=== PATIENT | female | born 1945 | race Caucasian/White ===

== ENCOUNTER 2024-07-08 17:40 | Inpatient (IN) | payer MEDICARE, BC ==
[2024-07-08] MEDS ORDERED: ACETAMINOPHEN TAB 325 MG TAB PO PRN (18:02)
[2024-07-08] MEDS ORDERED: NALOXONE 0.4 MG/ML 1 ML VIAL IV PRN (18:02)
--- NOTE | 2024-07-08 18:10 | ED ---
General Adult HPI - General Stated complaint: DVT/AMS Time Seen by Provider: 07/08/24 17:54 Source: patient, RN notes reviewed, old records reviewed - History of Present Illness Initial comments: 79-year-old female presents as transfer from outside hospital with DVT and PE identified on ultrasound and CT angiography of the chest. Patient was started on heparin and transferred for further evaluation. Patient had complained of chest pain and dyspnea. She was noted to be in A-fib and had diagnosis of DVT and PE. Patient has no complaints at the time my evaluation. Review of Systems ROS Statement: Those systems with pertinent positive or pertinent negative responses have been documented in the HPI. ROS Other: All systems not noted in ROS Statement are negative. General Exam General appearance: alert, in no apparent distress Head exam: Present: atraumatic, normocephalic Eye exam: Present: normal appearance, PERRL ENT exam: Present: normal exam Neck exam: Present: normal inspection. Absent: tenderness, meningismus Respiratory exam: Present: normal lung sounds bilaterally. Absent: respiratory distress, wheezes Cardiovascular Exam: Present: regular rate, irregular rhythm GI/Abdominal exam: Present: soft. Absent: distended, tenderness, guarding Extremities exam: Present: normal inspection, normal capillary refill Neurological exam: Present: alert, oriented X3, CN II-XII intact. Absent: motor sensory deficit Psychiatric exam: Present: normal affect, normal mood Skin exam: Present: warm, dry, intact. Absent: cyanosis, diaphoretic Medical Decision Making - Medical Decision Making Was pt. sent in by a medical professional or institution (, PA, PARTS REMOVER, urgent care, hospital, or long term...) When possible be specific @Patient was transferred from [facility] with bilateral PE Did you speak to anyone other than the patient for history (EMS, parent, family, police, friend...)? What history was obtained from this source @ -No Did you review nursing and triage notes (agree or disagree)? Why? @ -I reviewed and agree with nursing and triage notes Were old charts reviewed (outside hosp., previous admission, EMS record, old EKG, old radiological studies, urgent care reports/EKG's, long term records)? Report findings @ -No old charts were reviewed Differential Diagnosis (chest pain, altered mental status, abdominal pain women, abdominal pain men, vaginal bleeding, weakness, fever, dyspnea, syncope, headache, dizziness, GI bleed, back pain, seizure, CVA, palpatations, mental health, musculoskeletal)? @Differential Dyspnea: Coronary syndrome, arrhythmia, tamponade, asthma, COPD, pulmonary embolism, pneumonia, pneumothorax, pulmonary effusion, anaphylaxis, diabetic ketoacidosis, flailed chest, pulmonary contusion, diaphragmatic rupture, anemia, neuromuscular, this is not meant to be an all-inclusive list. EKG interpreted by me (3pts min.). @EKG: Atrial fibrillation rate of 80, QRS duration 74, QTc [address] segment elevation X-rays interpreted by me (1pt min.). @ -None done CT interpreted by me (1pt min.). @ -CT angiography will be loaded for review U/S interpreted by me (1pt. min.). @ -None done What testing was considered but not performed or refused? (CT, X-rays, U/S, labs)? Why? @ -None What meds were considered but not given or refused? Why? @ -None Did you discuss the management of the patient with other professionals (professionals i.e. , PA, PARTS REMOVER, lab, RT, psych nurse, social staff worker, quality systems specialist, teacher, animal control officer, caser up)? Give summary @ -[Case discussed with [facility] Was smoking cessation discussed for >3mins.? @ -No Was critical care preformed (if so, how long)? @ -Yes, 35 minutes bilateral PE Were there social determinants of health that impacted care today? How? (Homelessness, low income, unemployed, alcoholism, drug addiction, transportation, low edu. Level, literacy, decrease access to med. care, halfway, rehab)? @ -No Was there de-escalation of care discussed even if they declined (Discuss DNR or withdrawal of care, Hospice)? DNR status @ -No What co-morbidities impacted this encounter? (DM, HTN, Smoking, COPD, CAD, Cancer, CVA, ARF, Chemo, Hep., AIDS, mental health diagnosis, sleep apnea, morbid obesity)? @ -Atrial fibrillation Was patient admitted / discharged? Hospital course, mention meds given and route, prescriptions, significant lab abnormalities, going to OR and other per tinent info. @ -79-year-old female transfer from outside hospital with bilateral PE, concern for right heart strain. The troponin was negative. The patient is asymptomatic upon arrival. She will be continued on heparin repeat CBC, CMP and troponin are obtained these results are pending. Echo has been ordered. She is admitted to internal medicine with vascular surgery on consult for evaluatio n. Undiagnosed new problem with uncertain prognosis? @ -No Drug Therapy requiring intensive monitoring for toxicity (Heparin, Nitro, Insulin, Cardizem)? @ -No Were any procedures done? @ -No Diagnosis/symptom? @Bilateral PE Acute, or Chronic, or Acute on Chronic? @ -Acute Uncomplicated (without systemic symptoms) or Complicated (systemic symptoms)? @ -Default Side effects of treatment? @ -No Exacerbation, Progression, or Severe Exacerbation? @ -No Poses a threat to life or bodily function? How? (Chest pain, [place], NH, pneumonia, PE, COPD, DKA, ARF, appy, cholecystitis, CVA, Diverticulitis, Homicidal, Suicidal, threat to staff... and all critical care pts) @Yes, PE Critical Care Time Critical Care Time: Yes Total Critical Care Time: 35 Disposition Clinical Impression: Bilateral pulmonary embolism Disposition: ADMITTED IP TO THIS HOSP Condition: Stable Is patient prescribed a controlled substance at d/c from ED?: No Referrals: None,Stated [Primary Care Provider] - 1-2 days Time of Disposition: 18:10
[2024-07-08 18:19] LABS: Basophils % (A) 0 %; Eosinophils # (A) 0.1 k/uL (0-0.7); Eosinophils % (A) 1 %; HCT 37.9 % (34.0-46.0); HGB 12.5 gm/dL (11.4-16.0); Lymphocytes # (A) 1.9 k/uL (1.0-4.8); Lymphocytes % (A) 15 %; MCH 29.3 pg (25.0-35.0); MCV 88.6 fL (80.0-100.0); Mean Platelet Volume 7.8; Monocytes # (A) 0.6 k/uL (0-1.0); Monocytes % (A) 5 %; Neutrophils # (A) 9.9 k/uL (1.3-7.7); Neutrophils % (A) 78 %; Platelet Count 149 k/uL (150-450); RBC 4.28 m/uL (3.80-5.40); WBC 12.6 k/uL (3.8-10.6)
[2024-07-08] MEDS: HEPARIN SOD,PORK IN 0.45% NACL 25,000 UNIT in 0.45% NACL 1 250ML.BAG IV SCH (18:26)
[2024-07-08 18:51] LABS: INR 1.6 (<1.2); Prothrombin Time 16.8 sec (10.0-12.5)
[2024-07-08 19:42] LABS: ALT 16 U/L (4-34); AST 28 U/L (14-36); African American GFR (CKD) >90 (>60 ml/min/1.73 sqM); Albumin 3.1 g/dL (3.5-5.0); Alkaline Phosphatase 89 U/L (38-126); Anion Gap 7 mmol/L; Blood Urea Nitrogen 23 mg/dL (7-17); Calcium 8.4 mg/dL (8.4-10.2); Carbon Dioxide 26 mmol/L (22-30); Chloride 96 mmol/L (98-107); Glucose 123 mg/dL (74-99); Non-African American GFR(CKD) 86 (>60 ml/min/1.73 sqM); Potassium 3.5 mmol/L (3.5-5.1); Sodium 129 mmol/L (137-145); Total Bilirubin 1.1 mg/dL (0.2-1.3)
--- NOTE | 2024-07-08 20:08 | P.GSCN ---
History of Present Illness Consult date: 07/08/24 Reason for Consult: Bilateral PE, DVT History of present illness: 79-year-old female who originally presented to the hospital in [place] due to which she says her rehab therapist stated that she did not look well and was having a difficult time breathing. She states during that time she was evaluated and ultimately had a bilateral pulmonary embolism as well as a left lower extremity DVT and was transferred to [facility] for further evaluation. She was complaining of chest pain and shortness of breath and upon arrival to the emergency department she was placed on heparin. Currently she states she is feeling much better and her breathing has improved significantly and is no longer on any oxygen. She denies any fevers, chills, chest pain at this time. Review of Systems All systems: negative (What is mentioned in the HPI or past medical history) Past Medical History Past Medical History: Atrial Fibrillation, Cancer, Deep Vein Thrombosis (DVT), Osteoarthritis (OA), Pulmonary Embolus (PE) Additional Past Medical History / Comment(s): Right breast cancer in approx 2013 History of Any Multi-Drug Resistant Organisms: None Reported Past Surgical History: Appendectomy, Hysterectomy, Tonsillectomy Additional Past Surgical History / Comment(s): Bunion removal to left foot, Past Psychological History: No Psychological Hx Reported Smoking Status: Never smoker Past Alcohol Use History: None Reported Past Drug Use History: None Reported Medications and Allergies Home Medications Medication Instructions Recorded Confirmed Type Ascorbic Acid [Vitamin C] 1,000 mg PO HS 07/08/24 07/08/24 History Brainstrong Memory Support 1 tab PO HS 07/08/24 07/08/24 History Cranberry 8400mg 8,400 mg PO DAILY 07/08/24 07/08/24 History Grape Seed Extract 315mg 315 mg PO DAILY 07/08/24 07/08/24 History Milk Thistle 500mg 1,000 mg PO DAILY 07/08/24 07/08/24 History Mv-Min/Folic/Vit K/Lut/Azcp295 1 tab PO DAILY 07/08/24 07/08/24 History [Alive Women's 50 Plus Tablet] [place] 3-6-9 1 cap PO DAILY 07/08/24 07/08/24 History Psyllium Husk [Fiber Capsule] 0.4 gm PO DAILY 07/08/24 07/08/24 History Red Yeast Rice 1,200 mg PO BID 07/08/24 07/08/24 History Turmeric Root Extract [Turmeric] 500 mg PO HS 07/08/24 07/08/24 History Vitamin B-12(Unknown Dose) 1 tab PO DAILY 07/08/24 07/08/24 History Vitamin D3 500mcg 500 mcg PO HS 07/08/24 07/08/24 History hydroCHLOROthiazide [Hydrodiuril] 50 mg PO DAILY 07/08/24 07/08/24 History Allergies Allergy/AdvReac Type Severity Reaction Status Date / Time COVID-19 (SARS-CoV-2) Allergy Rash/Hives Verified 07/08/24 19:04 vaccine, sharifa Penicillins Allergy Rash/Hives Verified 07/08/24 19:04 Tetanus Vaccines and Toxoid Allergy Swelling Verified 07/08/24 19:04 Surgical - Exam Vital Signs Temp Pulse Resp BP Pulse Ox 97.5 F L 83 18 135/75 99 07/08/24 17:53 07/08/24 17:53 07/08/24 17:53 07/08/24 17:53 07/08/24 17:53 Patient Seen Date: 07/08/24 Patient Seen Time: 19:15 - General well developed, well nourished, no distress - Eyes PERRL, normal ocular movement - ENT normal pinna, normal nares - Neck no masses, no bruits - Respiratory normal expansion, normal respiratory effort - Cardiovascular Rhythm: regularly irregular - Abdomen Abdomen: soft, non tender - Integumentary no rash - Neurologic normal coordination, normal sensation - Psychiatric oriented to time, oriented to person, oriented to place, speech is normal Palpable DP and PT pulse bilaterally Tenderness to palpation of the left calf Results CT PE protocol demonstrates bilateral segmental PEs - Labs 07/08/24 18:10 07/08/24 18:10 Abnormal Lab Results - Last 24 Hours (Table) 07/08/24 07/08/24 07/08/24 Range/Units 18:10 18:10 18:10 WBC 12.6 H (3.8-10.6) k/uL Plt Count 149 L (150-450) k/uL Neutrophils # 9.9 H (1.3-7.7) k/uL PT 16.8 H (10.0-12.5) sec INR 1.6 H (<1.2) APTT 105.0 H* (22.0-30.0) sec Sodium 129 L (137-145) mmol/L Chloride 96 L (98-107) mmol/L BUN 23 H (7-17) mg/dL Glucose 123 H (74-99) mg/dL Total Protein 6.0 L (6.3-8.2) g/dL Albumin 3.1 L (3.5-5.0) g/dL Diabetes panel 07/08/24 Range/Units 18:10 Sodium 129 L (137-145) mmol/L Potassium 3.5 (3.5-5.1) mmol/L Chloride 96 L (98-107) mmol/L Carbon Dioxide 26 (22-30) mmol/L BUN 23 H (7-17) mg/dL Creatinine 0.65 (0.52-1.04) mg/dL Glucose 123 H (74-99) mg/dL Calcium 8.4 (8.4-10.2) mg/dL AST 28 (14-36) U/L ALT 16 (4-34) U/L Alkaline Phosphatase 89 (38-126) U/L Total Protein 6.0 L (6.3-8.2) g/dL Albumin 3.1 L (3.5-5.0) g/dL Calcium panel 07/08/24 Range/Units 18:10 Calcium 8.4 (8.4-10.2) mg/dL Albumin 3.1 L (3.5-5.0) g/dL Pituitary panel 07/08/24 Range/Units 18:10 Sodium 129 L (137-145) mmol/L Potassium 3.5 (3.5-5.1) mmol/L Chloride 96 L (98-107) mmol/L Carbon Dioxide 26 (22-30) mmol/L BUN 23 H (7-17) mg/dL Creatinine 0.65 (0.52-1.04) mg/dL Glucose 123 H (74-99) mg/dL Calcium 8.4 (8.4-10.2) mg/dL Adrenal panel 07/08/24 Range/Units 18:10 Sodium 129 L (137-145) mmol/L Potassium 3.5 (3.5-5.1) mmol/L Chloride 96 L (98-107) mmol/L Carbon Dioxide 26 (22-30) mmol/L BUN 23 H (7-17) mg/dL Creatinine 0.65 (0.52-1.04) mg/dL Glucose 123 H (74-99) mg/dL Calcium 8.4 (8.4-10.2) mg/dL Total Bilirubin 1.1 (0.2-1.3) mg/dL AST 28 (14-36) U/L ALT 16 (4-34) U/L Alkaline Phosphatase 89 (38-126) U/L Total Protein 6.0 L (6.3-8.2) g/dL Albumin 3.1 L (3.5-5.0) g/dL Assessment and Plan Assessment: Acute bilateral pulmonary embolism Acute lower extremity DVT Possible right heart strain Plan: Agree with heparin drip and will require transition to oral anticoagulation for at least 6 months There does not appear to be right heart strain on CT evaluation but will obtain echo in the morning Due to the fact that she is doing well on heparin and no significant shortness of breath and on room air unlikely to have any surgical intervention Thank you for the consultation
[2024-07-09] MEDS ORDERED: NALOXONE 0.4 MG/ML 1 ML VIAL IV PRN (09:51)
[2024-07-09] MEDS ORDERED: MELATONIN 3 MG TABLET PO PRN (09:51)
[2024-07-09] MEDS ORDERED: HYDROcodone/APAP 5-325MG 1 EACH TAB PO PRN (09:51)
[2024-07-09] MEDS ORDERED: MAG HYDROX/AL HYDROX/SIMETH 30 ML CUP PO PRN (09:51)
[2024-07-09] MEDS ORDERED: ONDANSETRON 4 MG/2 ML VIAL IVP PRN (09:51)
--- NOTE | 2024-07-09 13:26 | P.CNPUL ---
History of Present Illness Consult date: 07/09/24 Requesting physician: Sergey Ledbetter Reason for consult: pulmonary embolism Chief complaint: Leg swelling and shortness of breath History of present illness: This is a 79-year-old female, history of degenerative joint disease, history of atrial fibrillation, history of breast cancer, patient had a recent bunion surgery on the left foot and that was in March of 2024, patient was advised to go to rehab and has been following up in rehab after her surgery. Yesterday while in rehab, patient was complaining of left lower extremity swelling, and she was also complaining of some shortness of breath. Patient was sent to [place] ER, and she was found to have acute pulmonary embolism/bilateral pulmonary emboli. I believe she was also found to have left lower extremity DVT. Patient was complaining of some vague chest discomfort and shortness of breath when she was in the ER. Patient was placed on heparin, CT angiogram of the chest showed no evidence of right ventricular strain, patient was seen by vascular surgery, planning echocardiogram, and depending on the echocardiogram findings the decision will be made whether to continue medical therapy or to proceed with EKOS thrombolysis in the meantime the patient seems to be doing well, resting, does not seem to be in any distress patient is on room air, O2 sat is 96%, hemodynamically stable, multiple family members at bedside Review of Systems REVIEW OF SYSTEMS: CONSTITUTIONAL: Negative. EYES: Negative. ENT: Negative. CARDIAC: Negative. PULMONARY: As noted in HPI GI: Negative. GENITOURINARY: Negative. MUSCULOSKELETAL: As noted in HPI SKIN: Negative. NEUROPSYCH: Negative. ENDOCRINE: Negative. HEMATOLOGIC: Negative. Past Medical History Past Medical History: Atrial Fibrillation, Cancer, Deep Vein Thrombosis (DVT), Osteoarthritis (OA), Pulmonary Embolus (PE) Additional Past Medical History / Comment(s): Right breast cancer in approx 2013 History of Any Multi-Drug Resistant Organisms: None Reported Past Surgical History: Appendectomy, Hysterectomy, Tonsillectomy Additional Past Surgical History / Comment(s): Bunion removal to left foot, Past Psychological History: No Psychological Hx Reported Smoking Status: Never smoker Past Alcohol Use History: None Reported Past Drug Use History: None Reported Medications and Allergies Home Medications Medication Instructions Recorded Confirmed Type Ascorbic Acid [Vitamin C] 1,000 mg PO HS 07/08/24 07/08/24 History Brainstrong Memory Support 1 tab PO HS 07/08/24 07/08/24 History Cranberry 8400mg 8,400 mg PO DAILY 07/08/24 07/08/24 History Grape Seed Extract 315mg 315 mg PO DAILY 07/08/24 07/08/24 History Milk Thistle 500mg 1,000 mg PO DAILY 07/08/24 07/08/24 History Mv-Min/Folic/Vit K/Lut/[id number] 1 tab PO DAILY 07/08/24 07/08/24 History [Alive Women's 50 Plus Tablet] [place] 3-6-9 1 cap PO DAILY 07/08/24 07/08/24 History Psyllium Husk [Fiber Capsule] 0.4 gm PO DAILY 07/08/24 07/08/24 History Red Yeast Rice 1,200 mg PO BID 07/08/24 07/08/24 History Turmeric Root Extract [Turmeric] 500 mg PO HS 07/08/24 07/08/24 History Vitamin B-12(Unknown Dose) 1 tab PO DAILY 07/08/24 07/08/24 History Vitamin D3 500mcg 500 mcg PO HS 07/08/24 07/08/24 History hydroCHLOROthiazide [Hydrodiuril] 50 mg PO DAILY 07/08/24 07/08/24 History Allergies Allergy/AdvReac Type Severity Reaction Status Date / Time COVID-19 (SARS-CoV-2) Allergy Rash/Hives Verified 07/08/24 19:04 vaccine, sharifa Penicillins Allergy Rash/Hives Verified 07/08/24 19:04 Tetanus Vaccines and Toxoid Allergy Swelling Verified 07/08/24 19:04 Physical Exam Vitals: Vital Signs Temp Pulse Pulse Resp BP BP Pulse Ox 07/09/24 08:00 97.5 F L 96 16 93/53 96 07/09/24 03:20 103 H 18 126/82 98 07/08/24 23:27 78 18 106/67 98 07/08/24 21:07 97.6 F 77 18 127/71 99 07/08/24 20:13 97.6 F 64 20 105/73 97 07/08/24 18:13 16 07/08/24 17:53 97.5 F L 83 18 135/75 99 Intake and Output 07/08/24 07/09/24 07/09/24 22:59 06:59 14:59 Intake Total 11. 165 406.237 Balance 11. 165 406.237 Intake: Intake, IV Titration 11. 165 46.237 Amount Heparin Sod,Pork in 0.45% 11. 165 46.237 NaCl 25,000 unit In 0.45 % NaCl 1 250ml.bag @ 18 UNITS/KG/HR 19.8 mls/hr IV .[id number] PENDING SALE TO [facility] Rx#: [id number] Oral 360 Other: Weight 110 kg 51.4 kg General: The patient is awake and alert, in no distress, and does not appear acutely ill. Skin: Skin is warm and dry and no rashes or lesions are noted. Eye: Pupils are equal, round and reactive to light, extra-ocular movements are intact; there is normal conjunctiva bilaterally. Ears, nose, mouth and throat: There are moist mucous membranes and no oral l esions. Neck: The neck is supple, there is no tenderness or JVD. Cardiovascular: Normal S1-S2, no S3 gallop, no murmur Respiratory: Symmetrical chest expansion, clear bilaterally no rhonchi no wh eezes Gastrointestinal: Soft, non-distended, non-tender abdomen without masses or organomegaly noted. There is no rebound or guarding present. Bowel sounds are unremarkable. Musculoskeletal: Some swelling noted in the left calf region with tenderness. Neurological: Alert oriented x 3 no gross focal deficit Psychiatric: Normal mood affect and no mental status examination Results - Laboratory Findings CBC and BMP: 07/08/24 18:10 07/08/24 18:10 PT/INR, D-dimer PT 16.8 sec (10.0-12.5) H 07/08/24 18:10 INR 1.6 (<1.2) H 07/08/24 18:10 Abnormal lab findings: Abnormal Labs 07/08/24 07/08/24 07/08/24 18:10 18:10 18:10 WBC 12.6 H Plt Count 149 L Neutrophils # 9.9 H PT 16.8 H INR 1.6 H APTT 105.0 H* Sodium 129 L Chloride 96 L BUN 23 H Glucose 123 H Total Protein 6.0 L Albumin 3.1 L 07/09/24 07/09/24 02:55 06:53 WBC Plt Count Neutrophils # PT INR APTT >200.0 H* 109.0 H* Sodium Chloride BUN Glucose Total Protein Albumin - Diagnostic Findings Additional studies: No reports noted on the chart, the studies including CT angiogram of the chest and Doppler of the leg was done at [facility], again I could not find any reports on the chart Assessment and Plan Assessment: Impression: Acute bilateral pulmonary embolism Acute DVT left lower extremity New onset atrial fibrillation, rate seems to be controlled, cardiology been consulted Recent bunion surgery on left foot which may be a provoking factor for her DVT and pulmonary embolism Recommendation: Continue heparin Transition to Eliquis in the next 24 hours echocardiogram is pending Cardiology to evaluate for atrial fibrillation/controlled rhythm at this point. Patient is already on heparin Patient is being followed by vascular surgery and will make a decision whether a ny intervention is necessary based on the echocardiogram In the meantime we will continue to follow Time with Patient: Greater than 30
--- NOTE | 2024-07-09 13:51 | P.CRDCN ---
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 She believes she saw a property claims manager over 24 years ago but not recently. She presented yesterday to her physical therapy appointment and was noted to be very short of breath at which time EMS was called. She says she has been feeling more short of breath over the last 2 to 3 weeks. She was sent to [facility] and found to have bilateral pulmonary emboli with possible RV strain as well as left lower extremity DVT. She was seen by Dr. Fagan and not felt to be candidate for intervention. Echocardiogram is pending. She was also incidentally found to have atrial fibrillation of unknown duration. At times with RVR. She denies any chest discomfort or lower extremity edema. She denies any orthopnea or PND. She feels her breathing is stable but has not been up out of bed since admission. She does not feel any palpitations. She has no history of dizziness or lightheadedness and no syncopal episodes. Troponins have been negative x 3. Potassium normal, sodium 129, BUN 23, creatinine 0.65. She was on hydrochlorothiazide 50 mg p.o. daily at home and this has been on hold. Heart rate has been up to into the 120s at times. Blood pressure is on the soft side. Past Medical History Past Medical History: Atrial Fibrillation, Cancer, Deep Vein Thrombosis (DVT), Osteoarthritis (OA), Pulmonary Embolus (PE) Additional Past Medical History / Comment(s): Right breast cancer in approx 2013 History of Any Multi-Drug Resistant Organisms: None Reported Past Surgical History: Appendectomy, Hysterectomy, Tonsillectomy Additional Past Surgical History / Comment(s): Bunion removal to left foot, Past Psychological History: No Psychological Hx Reported Smoking Status: Never smoker Past Alcohol Use History: None Reported Past Drug Use History: None Reported Medications and Allergies Home Medications Medication Instructions Recorded Confirmed Type Ascorbic Acid [Vitamin C] 1,000 mg PO HS 07/08/24 07/08/24 History Brainstrong Memory Support 1 tab PO HS 07/08/24 07/08/24 History Cranberry 8400mg 8,400 mg PO DAILY 07/08/24 07/08/24 History Grape Seed Extract 315mg 315 mg PO DAILY 07/08/24 07/08/24 History Milk Thistle 500mg 1,000 mg PO DAILY 07/08/24 07/08/24 History Mv-Min/Folic/Vit K/[id number] 1 tab PO DAILY 07/08/24 07/08/24 History [Alive Women's 50 Plus Tablet] [place] 3-6-9 1 cap PO DAILY 07/08/24 07/08/24 History Psyllium Husk [Fiber Capsule] 0.4 gm PO DAILY 07/08/24 07/08/24 History Red Yeast Rice 1,200 mg PO BID 07/08/24 07/08/24 History Turmeric Root Extract [Turmeric] 500 mg PO HS 07/08/24 07/08/24 History Vitamin B-12(Unknown Dose) 1 tab PO DAILY 07/08/24 07/08/24 History Vitamin D3 500mcg 500 mcg PO HS 07/08/24 07/08/24 History hydroCHLOROthiazide [Hydrodiuril] 50 mg PO DAILY 07/08/24 07/08/24 History Allergies Allergy/AdvReac Type Severity Reaction Status Date / Time COVID-19 (SARS-CoV-2) Allergy Rash/Hives Verified 07/08/24 19:04 vaccine, sharifa Penicillins Allergy Rash/Hives Verified 07/08/24 19:04 Tetanus Vaccines and Toxoid Allergy Swelling Verified 07/08/24 19:04 Physical Exam Vitals: Vital Signs Temp Pulse Pulse Resp BP BP Pulse Ox 07/09/24 08:00 97.5 F L 96 16 93/53 96 07/09/24 03:20 103 H 18 126/82 98 07/08/24 23:27 78 18 106/67 98 07/08/24 21:07 97.6 F 77 18 127/71 99 07/08/24 20:13 97.6 F 64 20 105/73 97 07/08/24 18:13 16 07/08/24 17:53 97.5 F L 83 18 135/75 99 Intake and Output 07/08/24 07/09/24 07/09/24 22:59 06:59 14:59 Intake Total . 165 406.237 Balance 165 406.237 Intake: Intake, IV Titration . 165 46.237 Amount Heparin Sod,Pork in 0.45% . 165 46.237 NaCl 25,000 unit In 0.45 % NaCl 1 250ml.bag @ 18 UNITS/KG/HR 19.8 mls/hr IV .[id number] [facility] Rx#: [id number] Oral 360 Other: Weight 110 kg 51.4 kg PHYSICAL EXAMINATION: This is a 79-year-old female in no apparent distress at the time of my examination. VITAL SIGNS: Reviewed HEENT: Head is atraumatic, normocephalic. Pupils are equal, round. Sclerae anicteric. Conjunctivae are clear. Mucous membranes of the mouth are moist. Neck is supple. There is no elevated jugular venous pressure. No carotid bruit is heard. CHEST EXAMINATION: Clear to auscultation bilaterally. No wheezes rales or rhonchi. Respirations even and nonlabored. HEART EXAMINATION: Heart irregular rate and rhythm , positive S1 and S2. No S3. No S4. Systolic murmur ABDOMEN: Soft, nontender. Bowel sounds are heard. No organomegaly noted. EXTREMITIES: 2+ peripheral pulses with no evidence of peripheral edema and no calf tenderness noted. NEUROLOGIC EXAMINATION: Patient is awake, alert and oriented x3. Results 07/08/24 18:10 07/08/24 18:10 Cardiac Enzymes 07/08/24 07/08/24 07/08/24 Range/Units 18:10 18:10 21:03 AST 28 (14-36) U/L Troponin I <0.012 <0.012 (0.000-0.034) ng/mL 07/09/24 Range/Units 00:17 AST (14-36) U/L Troponin I <0.012 (0.000-0.034) ng/mL Coagulation 07/08/24 07/09/24 07/09/24 Range/Units 18:10 02:55 06:53 PT 16.8 H (10.0-12.5) sec APTT 105.0 H* >200.0 H* 109.0 H* (22.0-30.0) sec CBC 07/08/24 Range/Units 18:10 WBC 12.6 H (3.8-10.6) k/uL RBC 4.28 (3.80-5.40) m/uL Hgb 12.5 (11.4-16.0) gm/dL Hct 37.9 (34.0-46.0) % Plt Count 149 L (150-450) k/uL Comprehensive Metabolic Panel 07/08/24 Range/Units 18:10 Sodium 129 L (137-145) mmol/L Potassium 3.5 (3.5-5.1) mmol/L Chloride 96 L (98-107) mmol/L Carbon Dioxide 26 (22-30) mmol/L BUN 23 H (7-17) mg/dL Creatinine 0.65 (0.52-1.04) mg/dL Glucose 123 H (74-99) mg/dL Calcium 8.4 (8.4-10.2) mg/dL AST 28 (14-36) U/L ALT 16 (4-34) U/L Alkaline Phosphatase 89 (38-126) U/L Total Protein 6.0 L (6.3-8.2) g/dL Albumin 3.1 L (3.5-5.0) g/dL Current Medications Generic Name Dose Route Start Last Admin Trade Name Ammonq PRN Reason Stop Dose Admin Acetaminophen 650 mg 07/08/24 18:02 Acetaminophen Tab 325 Mg Tab PO Q6HR PRN Mild Pain or Fever > 100.5 Hydrocodone Bitart/Acetaminophen 1 each 07/09/24 09:51 Hydrocodone/Apap 5-325mg 1 Each Tab PO Q4HR PRN Moderate Pain (Scale 4 to 6) Al Hydroxide/Mg Hydroxide 15 ml 07/09/24 09:51 Mag Hydrox/Al Hydrox/Simeth 30 Ml Cup PO Q6HR PRN Indigestion Ascorbic Acid 1,000 mg 07/09/24 21:00 Ascorbic Acid 500 Mg Tab PO HS [facility] Calcium Polycarbophil 625 mg 07/10/24 09:00 Calcium Polycarbophil 625 Mg Tab PO DAILY [facility] Cholecalciferol 500 mcg 07/09/24 21:00 Cholecalciferol 125 Mcg (5000 Iu) Tablet PO HS [facility] Cyanocobalamin 500 mcg 07/10/24 09:00 Cyanocobalamin 500 Mcg Tab PO DAILY [facility] Heparin Sodium/Sodium Chloride 250 mls @ 19.8 mls/hr 07/08/24 18:15 07/09/24 10:27 25,000 unit/ Sodium Chloride IV 11 units/kg/hr .[id number] [facility] 12.1 mls/hr Administration Protocol 18 UNITS/KG/HR Melatonin 3 mg 07/09/24 09:51 Melatonin 3 Mg Tablet PO HS PRN Insomnia Naloxone HCl 0.2 mg 07/08/24 18:02 Naloxone 0.4 Mg/Ml 1 Ml Vial IV Q2M PRN Opioid Reversal Naloxone HCl 0.2 mg 07/09/24 09:51 Naloxone 0.4 Mg/Ml 1 Ml Vial IV Q2M PRN Opioid Reversal Ondansetron HCl 4 mg 07/09/24 09:51 Ondansetron 4 Mg/2 Ml Vial IVP Q8HR PRN Nausea And Vomiting Intake and Output 07/08/24 07/09/24 07/09/24 22:59 06:59 14:59 Intake Total 11.88 165 406.237 Balance 11. 165 406.237 Intake: Intake, IV Titration 11.88 165 46.237 Amount Heparin Sod,Pork in 0.45% 11. 165 46.237 NaCl 25,000 unit In 0.45 % NaCl 1 250ml.bag @ 18 UNITS/KG/HR 19.8 mls/hr IV .[id number] [facility] Rx#: [id number] Oral 360 Other: Weight 110 kg 51.4 kg 07/08/24 18:10 07/08/24 18:10 EKG Interpretations (text) Atrial fibrillation Assessment and Plan Assessment: #1 atrial fibrillation, unknown duration, likely persistent, some RVR at times #2 bilateral PE and DVT #3 hypertension Plan: From cardiology's perspective we will add a low-dose beta-odessa. Likely transition to Eliquis in the next 24 hours. Await echocardiogram results. We will obtain a lipid panel for completeness. We will continue to follow the patient and provide further recommendations accordingly. HOSPITALITY RECRUITER note has been reviewed, I agree with a documented findings and plan of care. Patient was seen and examined.
--- NOTE | 2024-07-09 14:21 | P.HPIM ---
History of Present Illness H&P Date: 07/09/24 History of present illness; patient 79-year-old lady with past medical history significant for hypertension who is a transfer for [facility] for acute DVT and PE. Patient apparently was following up at her rehab appointment since patient had a bunion surgery a few months ago where she was found to be not doing well and was short of breath. Patient stated that she was having chest pain and shortness of breath for the last few days. Shortness of breath is present at rest as on exertion. Patient was referred to [facility] where patient had a CT PE protocol done that showed patient to have bilateral PE, ultrasound of lower extremity done showed left lower extremity DVT. Patient was started on IV heparin and was transferred to [facility] Initial lab work done in the ER showed WBC 12.6, hemoglobin 12.5, platelet count 149, sodium 128, potassium 3.5, BUN 23, creatinine 0.65, glucose 123 EKG done in the ER showed heart rate of 80, irregular rhythm, no ST segment elevation or depression seen, no T-wave inversions seen. Patient admitted to internal medicine service REVIEW OF SYSTEMS: CONSTITUTIONAL: No fever, no malaise, no fatigue. HEENT: No recent visual problems or hearing problems. Denied any sore throat. CARDIOVASCULAR: Mentioned above PULMONARY: Mentioned above GASTROINTESTINAL: No diarrhea, no nausea, no vomiting, no abdominal pain. NEUROLOGICAL: No headaches, no weakness, no numbness. HEMATOLOGICAL: Denies any bleeding or petechiae. GENITOURINARY: Denies any burning micturition, frequency, or urgency. MUSCULOSKELETAL/RHEUMATOLOGICAL: Denies any joint pain, swelling, or any muscle pain. ENDOCRINE: Denies any polyuria or polydipsia. The rest of the 14-point review of systems is negative. PHYSICAL EXAMINATION: GENERAL: The patient is alert and oriented x3, not in any acute distress. Well developed, well nourished. HEENT: Pupils are round and equally reacting to light. EOMI. No scleral icterus. No conjunctival pallor. Normocephalic, atraumatic. No pharyngeal erythema. No thyromegaly. CARDIOVASCULAR: S1 and S2 present. No murmurs, rubs, or gallops. PULMONARY: Chest is clear to auscultation, no wheezing or crackles. ABDOMEN: Soft, nontender, nondistended, normoactive bowel sounds. No palpable organomegaly. MUSCULOSKELETAL: No joint swelling or deformity. EXTREMITIES: No cyanosis, clubbing, or pedal edema. NEUROLOGICAL: Gross neurological examination did not reveal any focal deficits. SKIN: No rashes. Assessment and plan Acute bilateral PE Acute left lower extremity DVT New onset A-fib Hypertension Recent bunion surgery on left foot which may be a provoking factor for her DVT and pulmonary embolism Monitor vital signs Monitor CBC Monitor CMP Continue telemetry monitoring Trend troponin Ordered 2D echo Continue pharmacy dose heparin Resume home med Consult cardiology for new onset A-fib Consult pulmonary Labs and medication were reviewed.. Continue same treatment. Continue with symptomatic treatment. Resume home medication. Monitor labs and vitals. DVT and GI prophylaxis. Further recommendations as per clinical course of the patient Dictation was produced using i[employer] dictation software. please excuse any grammatical, word or spelling errors. Past Medical History Past Medical History: Atrial Fibrillation, Cancer, Deep Vein Thrombosis (DVT), Osteoarthritis (OA), Pulmonary Embolus (PE) Additional Past Medical History / Comment(s): Right breast cancer in 2013 History of Any Multi-Drug Resistant Organisms: None Reported Past Surgical History: Appendectomy, Hysterectomy, Tonsillectomy Additional Past Surgical History / Comment(s): Bunion removal to left foot, Past Psychological History: No Psychological Hx Reported Smoking Status: Never smoker Past Alcohol Use History: None Reported Past Drug Use History: None Reported Medications and Allergies Home Medications Medication Instructions Recorded Confirmed Type Ascorbic Acid [Vitamin C] 1,000 mg PO HS 07/08/24 07/08/24 History Brainstrong Memory Support 1 tab PO HS 07/08/24 07/08/24 History Cranberry 8400mg 8,400 mg PO DAILY 07/08/24 07/08/24 History Grape Seed Extract 315mg 315 mg PO DAILY 07/08/24 07/08/24 History Milk Thistle 500mg 1,000 mg PO DAILY 07/08/24 07/08/24 History Mv-Min/Folic/Vit K/Lut/[id number] 1 tab PO DAILY 07/08/24 07/08/24 History [Alive Women's 50 Plus Tablet] [place] 3-6-9 1 cap PO DAILY 07/08/24 07/08/24 History Psyllium Husk [Fiber Capsule] 0.4 gm PO DAILY 07/08/24 07/08/24 History Red Yeast Rice 1,200 mg PO BID 07/08/24 07/08/24 History Turmeric Root Extract [Turmeric] 500 mg PO HS 07/08/24 07/08/24 History Vitamin B-12(Unknown Dose) 1 tab PO DAILY 07/08/24 07/08/24 History Vitamin D3 500mcg 500 mcg PO HS 07/08/24 07/08/24 History hydroCHLOROthiazide [Hydrodiuril] 50 mg PO DAILY 07/08/24 07/08/24 History Allergies Allergy/AdvReac Type Severity Reaction Status Date / Time COVID-19 (SARS-CoV-2) Allergy Rash/Hives Verified 07/08/24 19:04 vaccine, sharifa Penicillins Allergy Rash/Hives Verified 07/08/24 19:04 Tetanus Vaccines and Toxoid Allergy Swelling Verified 07/08/24 19:04 Physical Exam Vitals: Vital Signs Temp Pulse Pulse Resp BP BP Pulse Ox 07/09/24 08:00 97.5 F L 96 16 93/53 96 07/09/24 03:20 103 H 18 126/82 98 07/08/24 23:27 78 18 106/67 98 07/08/24 21:07 97.6 F 77 18 127/71 99 07/08/24 20:13 97.6 F 64 20 105/73 97 07/08/24 18:13 16 07/08/24 17:53 97.5 F L 83 18 135/75 99 Intake and Output 07/08/24 07/09/24 07/09/24 22:59 06:59 14:59 Intake Total 165 402.607 Balance 165 402.607 Intake: Intake, IV Titration 165 42.607 Amount Heparin Sod,Pork in 0.45% 165 42.607 NaCl 25,000 unit In 0.45 % NaCl 1 250ml.bag @ 18 UNITS/KG/HR 19.8 mls/hr IV .[id number] [facility] Rx#: [id number] Oral 360 Other: Weight 110 kg 51.4 kg Results CBC & Chem 7: 07/08/24 18:10 07/08/24 18:10 Labs: Abnormal Lab Results - Last 24 Hours (Table) 07/08/24 07/08/24 07/08/24 Range/Units 18:10 18:10 18:10 WBC 12.6 H (3.8-10.6) k/uL Plt Count 149 L (150-450) k/uL Neutrophils # 9.9 H (1.3-7.7) k/uL PT 16.8 H (10.0-12.5) sec INR 1.6 H (<1.2) APTT 105.0 H* (22.0-30.0) sec Sodium 129 L (137-145) mmol/L Chloride 96 L (98-107) mmol/L BUN 23 H (7-17) mg/dL Glucose 123 H (74-99) mg/dL Total Protein 6.0 L (6.3-8.2) g/dL Albumin 3.1 L (3.5-5.0) g/dL 07/09/24 07/09/24 Range/Units 02:55 06:53 WBC (3.8-10.6) k/uL Plt Count (150-450) k/uL Neutrophils # (1.3-7.7) k/uL PT (10.0-12.5) sec INR (<1.2) APTT >200.0 H* 109.0 H* (22.0-30.0) sec Sodium (137-145) mmol/L Chloride (98-107) mmol/L BUN (7-17) mg/dL Glucose (74-99) mg/dL Total Protein (6.3-8.2) g/dL Albumin (3.5-5.0) g/dL Thrombosis Risk Factor Assmnt - Choose All That Apply Each Factor Represents 1 point: Obesity (BMI >25) Each Risk Factor Represents 3 Points: Age 75 years or older, History of DVT/PE Thrombosis Risk Factor Assessment Total Risk Factor Score: 7 Thrombosis Risk Factor Assessment Level: High Risk
[2024-07-09] MEDS: METOPROLOL TARTRATE 12.5 MG TAB PO SCH (15:47)
--- NOTE | 2024-07-09 15:52 | CA ---
Transthoracic Echo Report Name: Kayley Wright Age: 79 Gender: F : 1945 Exam Date: 07/09/2024 08:13 Exam Location: [place] [facility] Ht (in): 70 Wt (lb): 125 Ordering Physician: Trae Miguel MD Attending/Referring Phys: [id number], Lamont Lining Caser Bernadette Mcdonald RDCS Procedure CPT: Indications: b/l PE Cardiac Hx: Technical Quality: Good Contrast 1: Total Dose (mL): Contrast 2: Total Dose (mL): MEASUREMENTS (Male / Female) Normal Values 2D ECHO LV Diastolic Diameter PLAX 4.0 cm 4.2 - 5.9 / 3.9 - 5.3 cm LV Systolic Diameter PLAX 3.7 cm IVS Diastolic Thickness 1.0 cm 0.6 - 1.0 / 0.6 - 0.9 cm LVPW Diastolic Thickness 1.0 cm 0.6 - 1.0 / 0.6 - 0.9 cm LV Relative Wall Thickness 0.5 RV Internal Dim ED PLAX 3.1 cm LA Systolic Diameter LX 3.7 cm 3.0 - 4.0 / 2.7 - 3.8 cm LV Diastolic Volume MOD BP 36.1 cm??? 67 - 155 / 56 - 104 cm??? LV Systolic Volume MOD BP 16.2 cm??? - 58 / 19 - 49 cm??? LV Ejection Fraction MOD BP 55.2 % >= 55 % LV Cardiac Index MOD BP 1213.3 cm???/min???m??? LV Diastolic Volume MOD 4C 36.3 cm??? LV Systolic Volume MOD 4C 15.4 cm??? LV Ejection Fraction MOD 4C 57.4 % LV Cardiac Index MOD 4C 1267.7 cm???/min???m??? LV Diastolic Length 4C 6.2 cm LV Systolic Length 4C 4.6 cm LV Diastolic Volume MOD 2C 14.2 cm??? LV Systolic Volume MOD 2C 15.6 cm??? LV Ejection Fraction MOD 2C -9.8 % LV Cardiac Index MOD 2C -84.3 cm???/min???m??? LV Diastolic Length 2C 2.3 cm LV Systolic Length 2C 5.0 cm LA Volume 45.9 cm??? 18 - 58 / 22 - 52 cm??? LA Volume Index 27.7 cm???/m??? 16 - 28 cm???/m??? M-MODE Aortic Root Diameter MM 2.9 cm AV Cusp Separation MM 2.2 cm DOPPLER AV Peak Velocity 116.6 cm/s AV Peak Gradient 5.4 mmHg MV Area PHT 3.7 cm??? MV Deceleration Time 203.9 ms TR Peak Velocity 235.4 cm/s TR Peak Gradient 22.2 mmHg Right Ventricular Systolic Press 26.7 mmHg FINDINGS Left Ventricle Left ventricular ejection fraction is estimated at 5-60 %. No obvious regional wall motion abnormalities.Normal left ventricular systolic function with no obvious regional wall motion abnormalities. Left ventricular cavity size normal. Right Ventricle Normal right ventricular size. Right ventricular systolic pressure within normal limits. Right Atrium Moderate right atrial dilatation. No right atrial thrombus or mass seen. Left Atrium Normal left atrial size. No left atrial thrombus or mass present. Mitral Valve Structurally normal mitral valve. Mild to moderate mitral regurgitation. Aortic Valve Trileaflet aortic valve. No aortic valve stenosis or regurgitation. Tricuspid Valve Structurally normal tricuspid valve. Moderate tricuspid regurgitation. Pulmonic Valve Structurally normal pulmonic valve. No pulmonic regurgitation. Pericardium No pericardial or pleural effusion. Aorta Normal size aortic root and proximal ascending aorta. CONCLUSIONS 1. Normal left ventricular size and systolic function 2. Mild to moderate mitral with moderate tricuspid regurgitation and no evidence of pulmonary hypertension Previewed by: Dr. Sharron Gaona MD (Electronically Signed) Final Date: 09 July 2024 15:51
[2024-07-09] MEDS: ASCORBIC ACID 500 MG TAB PO SCH (20:08)
[2024-07-09] MEDS: CHOLECALCIFEROL 125 MCG (5000 IU) TABLET PO SCH (20:08)
[2024-07-10 06:59] LABS: Basophils % (A) 0 %; Eosinophils # (A) 0.1 k/uL (0-0.7); Eosinophils % (A) 1 %; HCT 39.1 % (34.0-46.0); HGB 12.5 gm/dL (11.4-16.0); Lymphocytes # (A) 1.2 k/uL (1.0-4.8); Lymphocytes % (A) 14 %; MCH 28.8 pg (25.0-35.0); Mean Platelet Volume 7.7; Monocytes # (A) 0.5 k/uL (0-1.0); Monocytes % (A) 5 %; Neutrophils # (A) 6.8 k/uL (1.3-7.7); Neutrophils % (A) 79 %; Platelet Count 195 k/uL (150-450); RBC 4.35 m/uL (3.80-5.40); RDW 12.9 % (11.5-15.5); WBC 8.7 k/uL (3.8-10.6)
[2024-07-10 07:34] LABS: ALT 14 U/L (4-34); AST 26 U/L (14-36); African American GFR (CKD) >90 (>60 ml/min/1.73 sqM); Albumin 2.8 g/dL (3.5-5.0); Alkaline Phosphatase 98 U/L (38-126); Anion Gap 3 mmol/L; Blood Urea Nitrogen 15 mg/dL (7-17); Calcium 8.2 mg/dL (8.4-10.2); Carbon Dioxide 29 mmol/L (22-30); Chloride 98 mmol/L (98-107); Glucose 104 mg/dL (74-99); Non-African American GFR(CKD) 86 (>60 ml/min/1.73 sqM); Potassium 3.2 mmol/L (3.5-5.1); Sodium 130 mmol/L (137-145); Total Bilirubin 0.9 mg/dL (0.2-1.3); Total Protein 5.7 g/dL (6.3-8.2)
[2024-07-10] MEDS: CYANOCOBALAMIN 500 MCG TAB PO SCH (08:46)
[2024-07-10] MEDS ORDERED: OMEGA PO SCH (09:00)
[2024-07-10] MEDS: APIXABAN 5 MG TAB PO SCH (11:10)
--- NOTE | 2024-07-10 12:30 | P.PN ---
Subjective Progress Note Date: 07/10/24 Principal diagnosis: Acute pulmonary embolism and acute left lower extremity DVT This is a 79-year-old female, history of degenerative joint disease, history of atrial fibrillation, history of breast cancer, patient had a recent bunion surgery on the left foot and that was in March of 2024, patient was advised to go to rehab and has been following up in rehab after her surgery. Yesterday while in rehab, patient was complaining of left lower extremity swelling, and she was also complaining of some shortness of breath. Patient was sent to [place] ER, and she was found to have acute pulmonary embolism/bilateral pulmonary emboli. I believe she was also found to have left lower extremity DVT. Patient was complaining of some vague chest discomfort and shortness of breath when she was in the ER. Patient was placed on heparin, CT angiogram of the chest showed no evidence of right ventricular strain, patient was seen by vascular surgery, planning echocardiogram, and depending on the echocardiogram findings the decision will be made whether to continue medical therapy or to proceed with EKOS thrombolysis in the meantime the patient seems to be doing well, resting, does not seem to be in any distress patient is on room air, O2 sat is 96%, hemodynamically stable, multiple family members at bedside Patient was seen today on 07/10/2024, patient is doing well, on room air, does not seem to be in any distress, hence we will go ahead and transition the patient from heparin to Eliquis.Labs today were reviewed she had relatively normal CBC, potassium is low at 3.2, being addressed as per protocol. PTT today 64.8 Objective - Vital Signs Vital signs: Vital Signs Temp 98.2 F 07/10/24 11:33 Pulse 83 07/10/24 11:33 Resp 16 07/10/24 11:33 BP 113/69 07/10/24 11:33 Pulse Ox 98 07/10/24 11:33 FiO2 Intake & Output 07/09/24 07/10/24 07/10/24 18:59 06:59 18:59 Intake Total 1694.164 540 148.995 Balance 1694.164 540 148.995 Weight 52.7 kg Intake: Intake, IV Titration 134.164 148.995 Amount Heparin Sod,Pork in 0.45% 134.164 148.995 NaCl 25,000 unit In 0.45 % NaCl 1 250ml.bag @ 18 UNITS/KG/HR 19.8 mls/hr IV .[id number] [facility] Rx#: [id number] Oral [id number] Other: # Voids 1 # Bowel Movements 1 - Exam General: The patient is awake and alert, in no distress, and does not appear acutely ill. Skin: Skin is warm and dry and no rashes or lesions are noted. Eye: Pupils are equal, round and reactive to light, extra-ocular movements are intact; there is normal conjunctiva bilaterally. Ears, nose, mouth and throat: There are moist mucous membranes and no oral lesions. Neck: The neck is supple, there is no tenderness or JVD. Cardiovascular: Normal S1-S2, no S3 gallop, no murmur Respiratory: Symmetrical chest expansion, clear bilaterally no rhonchi no wheezes Gastrointestinal: Soft, non-distended, non-tender abdomen without masses or organomegaly noted. There is no rebound or guarding present. Bowel sounds are unremarkable. Musculoskeletal: Some swelling noted in the left calf region with tenderness. Neurological: Alert oriented x 3 no gross focal deficit Psychiatric: Normal mood affect and no mental status examination - Labs CBC & Chem 7: 07/10/24 06:46 07/10/24 06:46 Labs: Abnormal Lab Results - Last 24 Hours (Table) 07/09/24 07/09/24 07/10/24 Range/Units 15:50 22:32 06:46 APTT 74.1 H 64.8 H (22.0-30.0) sec Sodium 130 L (137-145) mmol/L Potassium 3.2 L (3.5-5.1) mmol/L Glucose 104 H (74-99) mg/dL Calcium 8.2 L (8.4-10.2) mg/dL Total Protein 5.7 L (6.3-8.2) g/dL Albumin 2.8 L (3.5-5.0) g/dL Assessment and Plan Assessment: Impression: Acute bilateral pulmonary embolism Acute DVT left lower extremity New onset atrial fibrillation, rate seems to be controlled, cardiology been consulted Recent bunion surgery on left foot which may be a provoking factor for her DVT and pulmonary embolism Recommendation: Transition heparin to Eliquis Cardiology has seen the patient and recommended beta-blockers/low-dose Echocardiogram report was noted, basically unremarkable, normal systolic right ventricular pressure Consider discharge planning and follow-up on outpatient basis Patient has to be cleared by other consultants. Time with Patient: Less than 30
[2024-07-10] MEDS: POTASSIUM CHLORIDE ER 20 MEQ TAB.ER PO STA (12:37)
[2024-07-10 13:01] LABS: Chol/HDL Ratio 2.94 Ratio; LDL Cholesterol,Calculated 85.4 mg/dL (0.0-131.0); VLDL Calculation 17.56 mg/dL (5.00-40.00)
--- NOTE | 2024-07-10 13:11 | P.PN ---
Subjective HISTORY OF PRESENT ILLNESS: Pleasant 79-year-old female patient who does not follow regularly with a nutritionist public health she is somewhat of a poor historian but does verbalize a history of recent bunion surgery about 2 months ago, hypertension and questionable history of atrial fibrillation about a year and a half ago at which time according to her the workup was unremarkable. She believes she saw a nutritionist public health over 24 years ago but not recently. She presented yesterday to her physical therapy appointment and was noted to be very short of breath at which time EMS was called. She says she has been feeling more short of breath over the last 2 to 3 weeks. She was sent to [facility] and found to have bilateral pulmonary emboli with possible RV strain as well as left lower extremity DVT. She was seen by Dr. Fagan and not felt to be candidate for intervention. Echocardiogram is pending. She was also incidentally found to have atrial fibrillation of unknown duration. At times with RVR. She denies any chest discomfort or lower extremity edema. She denies any orthopnea or PND. She feels her breathing is stable but has not been up out of bed since admission. She does not feel any palpitations. She has no history of dizziness or lightheadedness and no syncopal episodes. Troponins have been negative x 3. Potassium normal, sodium 129, BUN 23, creatinine 0.65. She was on hydrochlorothiazide 50 mg p.o. daily at home and this has been on hold. Heart rate has been up to into the 120s at times. Blood pressure is on the soft side. 07/10/2024 Patient examined this morning at the bedside. Patient currently denies chest pain or pressure. She denies shortness of breath. Telemetry reveals atrial fibrillation with a heart rate in the 70s. She has been transition to [facility] by pulmonary medicine. Echocardiogram completed revealing ejection fraction 55 to 60%, right ventricular systolic pressure within normal limits, mild to moderate mitral regurgitation, moderate tricuspid regurgitation. PHYSICAL EXAM: VITAL SIGNS: Reviewed. GENERAL: Well-developed in no acute distress. NECK: Supple. No JVD or thyromegaly LUNGS: Respirations even and unlabored. Lungs essentially clear to auscultation bilaterally. HEART: Irregular rate and rhythm. S1 and S2 heard. Systolic murmur noted EXTREMITIES: Normal range of motion. No clubbing or cyanosis. Peripheral pulses intact. No lower extremity edema ASSESSMENT: #1 atrial fibrillation, unknown duration, likely persistent, some RVR at times #2 bilateral PE and DVT #3 hypertension PLAN: Patient has been transition to [facility] by pulmonary medicine Continue current dose of metoprolol Continue telemetry monitoring Patient is currently stable from a cardiac standpoint Further recommendations pending patient course Patient to follow-up postdischarge with Dr. Gaona Nurse practitioner note has been reviewed by physician. Signing provider agrees with the documented findings, assessment, and plan of care documented by ENGRAVER COPPERPLATE as a scribe. Objective - Vital Signs Vital signs: Vital Signs Temp 98.2 F 07/10/24 11:33 Pulse 83 07/10/24 11:33 Resp 16 07/10/24 11:33 BP 113/69 07/10/24 11:33 Pulse Ox 98 07/10/24 11:33 FiO2 Intake & Output 07/09/24 07/10/24 07/10/24 18:59 06:59 18:59 Intake Total 1694.164 540 688.995 Balance 1694.164 540 688.995 Weight 52.7 kg Intake: Intake, IV Titration 134.164 148.995 Amount Heparin Sod,Pork in 0.45% 134.164 148.995 NaCl 25,000 unit In 0.45 % NaCl 1 250ml.bag @ 18 UNITS/KG/HR 19.8 mls/hr IV .[id number] [facility] Rx#: [id number] Oral 1560 540 540 Other: # Voids 1 # Bowel Movements 1 - Labs CBC & Chem 7: 07/10/24 06:46 07/10/24 06:46 Labs: Abnormal Lab Results - Last 24 Hours (Table) 07/09/24 07/09/24 07/10/24 Range/Units 15:50 22:32 06:46 APTT 74.1 H 64.8 H (22.0-30.0) sec Sodium 130 L (137-145) mmol/L Potassium 3.2 L (3.5-5.1) mmol/L Glucose 104 H (74-99) mg/dL Calcium 8.2 L (8.4-10.2) mg/dL Total Protein 5.7 L (6.3-8.2) g/dL Albumin 2.8 L (3.5-5.0) g/dL
--- NOTE | 2024-07-10 13:31 | P.PN ---
Subjective Progress Note Date: 07/10/24 patient 79-year-old lady with past medical history significant for hypertension who is a transfer for [facility] for acute DVT and PE. Patient apparently was following up at her rehab appointment since patient had a bunion surgery a few months ago where she was found to be not doing well and was short of breath. Patient stated that she was having chest pain and shortness of breath for the last few days. Shortness of breath is present at rest as on exertion. Patient was referred to [facility] where patient had a CT PE protocol done that showed patient to have bilateral PE, ultrasound of lower extremity done showed left lower extremity DVT. Patient was started on IV heparin and was transferred to [facility] Initial lab work done in the ER showed WBC 12.6, hemoglobin 12.5, platelet count 149, sodium 128, potassium 3.5, BUN 23, creatinine 0.65, glucose 123 EKG done in the ER showed heart rate of 80, irregular rhythm, no ST segment elevation or depression seen, no T-wave inversions seen. Patient admitted to internal medicine service 07/10. Patient seen and examined. 2D echo done showed LVEF of 55 to 60%, no obvious regional wall motion abnormality. Patient transitioned from heparin to Eliquis. REVIEW OF SYSTEMS: CONSTITUTIONAL: No fever, no malaise,. CARDIOVASCULAR: No chest pain, no palpitations, no syncope. PULMONARY: No shortness of breath, no cough, GASTROINTESTINAL: No diarrhea, no nausea, no vomiting, no abdominal pain. NEUROLOGICAL: No headaches, no weakness, PHYSICAL EXAMINATION: GENERAL: The patient is alert and oriented x3, not in any acute distress. Well developed, well nourished. HEENT: Pupils are round and equally reacting to light. EOMI. No scleral icterus. No conjunctival pallor. Normocephalic, atraumatic. No pharyngeal erythema. No thyromegaly. CARDIOVASCULAR: S1 and S2 present. No murmurs, rubs, or gallops. PULMONARY: Chest is clear to auscultation, no wheezing or crackles. ABDOMEN: Soft, nontender, nondistended, normoactive bowel sounds. No palpable organomegaly. MUSCULOSKELETAL: No joint swelling or deformity. EXTREMITIES: No cyanosis, clubbing, or pedal edema. NEUROLOGICAL: Gross neurological examination did not reveal any focal deficits. SKIN: No rashes. Assessment and plan Acute bilateral PE Acute left lower extremity DVT New onset A-fib Hypertension Recent bunion surgery on left foot which may be a provoking factor for her DVT and pulmonary embolism Monitor vital signs Monitor CBC Monitor CMP Continue telemetry monitoring Continue Lopressor Heparin discontinued, started on Eliquis Potassium replacement ordered Cardiology following, recommended adding low-dose Lopressor and anticoagulation Vascular surgery following Pulmonology following Labs and medication were reviewed.. Continue same treatment. Continue with symptomatic treatment. Resume home medication. Monitor labs and vitals. DVT and GI prophylaxis. Further recommendations as per clinical course of the juarez hutchins Dictation was produced using [employer] dictation software. please excuse any grammatical, word or spelling errors. Objective - Vital Signs Vital signs: Vital Signs Temp 98.0 F 07/10/24 08:00 Pulse 90 07/10/24 08:00 Resp 16 07/10/24 08:00 BP 110/70 07/10/24 08:00 Pulse Ox 92 L 07/10/24 08:00 FiO2 Intake & Output 07/09/24 07/10/24 07/10/24 18:59 06:59 18:59 Intake Total 1694.164 540 148.995 Balance 1694.164 540 148.995 Weight 52.7 kg Intake: Intake, IV Titration 134.164 148.995 Amount Heparin Sod,Pork in 0.45% 134.164 148.995 NaCl 25,000 unit In 0.45 % NaCl 1 250ml.bag @ 18 UNITS/KG/HR 19.8 mls/hr IV .[id number] [facility] Rx#: [id number] Oral 1560 540 Other: # Voids 1 # Bowel Movements 1 - Labs CBC & Chem 7: 07/10/24 06:46 07/10/24 06:46 Labs: Abnormal Lab Results - Last 24 Hours (Table) 07/09/24 07/09/24 07/10/24 Range/Units 15:50 22:32 06:46 APTT 74.1 H 64.8 H (22.0-30.0) sec Sodium 130 L (137-145) mmol/L Potassium 3.2 L (3.5-5.1) mmol/L Glucose 104 H (74-99) mg/dL Calcium 8.2 L (8.4-10.2) mg/dL Total Protein 5.7 L (6.3-8.2) g/dL Albumin 2.8 L (3.5-5.0) g/dL
[2024-07-11 08:31] VITALS: BP 93/63; PULSE 89; RESP 14; TEMP 98.1
--- NOTE | 2024-07-11 09:14 | P.PN ---
Subjective Progress Note Date: 07/11/24 Principal diagnosis: Lateral PE, left lower extremity DVT Patient is seen and examined today as a follow-up. She denies any shortness of breath or chest pain. No pain in her lower extremities. She was transition from heparin drip to Eliquis and cardiology is also following for new onset A- fib. Oxygen saturation 96 to 99% on room air. Objective - Vital Signs Vital signs: Vital Signs Temp 98.1 F 07/11/24 08:29 Pulse 89 07/11/24 08:29 Resp 14 07/11/24 08:29 BP 93/63 07/11/24 08:29 Pulse Ox 96 07/11/24 08:29 FiO2 Intake & Output 07/10/24 07/11/24 07/11/24 18:59 06:59 18:59 Intake Total 688.995 360 Balance 688.995 360 Weight 52.4 kg Intake: Intake, IV Titration 148.995 Amount Heparin Sod,Pork in 0.45% 148.995 NaCl 25,000 unit In 0.45 % NaCl 1 250ml.bag @ 18 UNITS/KG/HR 19.8 mls/hr IV .[id number] [facility] Rx#: [id number] Oral 540 360 Other: Voiding Method Toilet # Voids 1 - Exam General appearance: The patient is alert, oriented, appears in no acute distress. HET: Head is normocephalic and atraumatic. Neck: Supple. Heart: Regular. Lungs: Equal expansion, normal respiratory effort. Abdomen: Soft, nontender, nondistended. Extremities: Normal skin color and turgor. No lower extremity swelling. Palpable DP pulses bilaterally. Neurological: No focal deficits. Strength and sensation are grossly intact. - Labs CBC & Chem 7: 07/10/24 06:46 07/10/24 06:46 Assessment and Plan Assessment: 1. Acute bilateral pulmonary embolism 2. Acute left lower extremity DVT 3. Atrial fibrillation 4. Recent foot surgery Plan: 1. Continue anticoagulation as ordered 2. No indication for any vascular surgical intervention 3. Continue with recommendations from cardiology 4. Rest of medical management per primary medical team 5. Patient is cleared for discharge from vascular surgery Thank you for this consultation, we will sign off at this time. The impression and plan of care has been dictated as directed. Dr.Cuppari I performed a history and examination of this patient, discussed the same with the dictator. I agree with the dictator's note ,documented as a scribe. Any additional findings or plans will be noted.
--- NOTE | 2024-07-11 12:35 | P.DS ---
Providers Date of admission: 07/08/24 18:03 Expected date of discharge: 07/11/24 Attending physician: Sergey Ledbetter Consults: 07/08/24 18:02 Consult Physician Routine Consulting Provider: Trevon Fagan Consult Reason/Comments: B/L PE Do you want consulting provider notified?: Yes 07/09/24 09:50 Consult Physician Routine Consulting Provider: Jean Carlos Jacinto Consult Reason/Comments: Acute bilateral PE Do you want consulting provider notified?: Yes 07/09/24 09:57 Consult Physician Routine Consulting Provider: Venkata Goddard Consult Reason/Comments: New A-fib Do you want consulting provider notified?: Yes Primary care physician: [facility] Course: Discharge diagnoses; Acute bilateral PE Acute left lower extremity DVT New onset A-fib Hypertension Recent bunion surgery on left foot which may be a provoking factor for her DVT and pulmonary embolism Hospital course; patient 79-year-old lady with past medical history significant for hypertension who is a transfer for [facility] for acute DVT and PE. Patient apparently was following up at her rehab appointment since patient had a bunion surgery a few months ago where she was found to be not doing well and was short of breath. Patient stated that she was having chest pain and shortness of breath for the last few days. Shortness of breath is present at rest as on exertion. Patient was referred to [facility] where patient had a CT PE protocol done that showed patient to have bilateral PE, ultrasound of lower extremity done showed left lower extremity DVT. Patient was started on IV heparin and was transferred to [facility] Initial lab work done in the ER showed WBC 12.6, hemoglobin 12.5, platelet count 149, sodium 128, potassium 3.5, BUN 23, creatinine 0.65, glucose 123 EKG done in the ER showed heart rate of 80, irregular rhythm, no ST segment elevation or depression seen, no T-wave inversions seen. Patient admitted to internal medicine service 07/10. Patient seen and examined. 2D echo done showed LVEF of 55 to 60%, no obvious regional wall motion abnormality. Patient transitioned from heparin to Eliquis. 07/11. Patient seen and examined .Cardiology following, recommended adding low- dose Lopressor and anticoagulation. Pulmonary cleared the patient for discharge. PHYSICAL EXAMINATION: GENERAL: The patient is alert and oriented x3, not in any acute distress. Well developed, well nourished. HEENT: Pupils are round and equally reacting to light. EOMI. No scleral icterus. No conjunctival pallor. Normocephalic, atraumatic. No pharyngeal erythema. No thyromegaly. CARDIOVASCULAR: S1 and S2 present. No murmurs, rubs, or gallops. PULMONARY: Chest is clear to auscultation, no wheezing or crackles. ABDOMEN: Soft, nontender, nondistended, normoactive bowel sounds. No palpable organomegaly. MUSCULOSKELETAL: No joint swelling or deformity. EXTREMITIES: No cyanosis, clubbing, or pedal edema. NEUROLOGICAL: Gross neurological examination did not reveal any focal deficits. SKIN: No rashes. Dictation was produced using [employer] dictation software. please excuse any grammatical, word or spelling errors. Patient Condition at Discharge: Stable Plan - Discharge Summary Discharge Rx Participant: Yes New Discharge Prescriptions: New Apixaban [Eliquis Starter Pack (for VTE)] 5 - 10 mg PO DIRECTED 30 Days #1 each Metoprolol Tartrate [Lopressor] 12.5 mg PO BID 30 Days #60 tab Continue Ascorbic Acid [Vitamin C] 1,000 mg PO HS Psyllium Husk [Fiber Capsule] 0.4 gm PO DAILY Mv-Min/Folic/Vit K/Lut/Uppe429 [Alive Women's 50 Plus Tablet] 1 tab PO DAILY Vitamin D3 500mcg 500 mcg PO HS [place] 3-6-9 1 cap PO DAILY Milk Thistle 500mg 1,000 mg PO DAILY Grape Seed Extract 315mg 315 mg PO DAILY Cranberry 8400mg 8,400 mg PO DAILY Vitamin B-12(Unknown Dose) 1 tab PO DAILY Brainstrong Memory Support 1 tab PO HS Discontinued Turmeric Root Extract [Turmeric] 500 mg PO HS Red Yeast Rice 1,200 mg PO BID hydroCHLOROthiazide [Hydrodiuril] 50 mg PO DAILY Discharge Medication List Ascorbic Acid [Vitamin C] 1,000 mg PO HS 07/08/24 [History] Brainstrong Memory Support 1 tab PO HS 07/08/24 [History] Cranberry 8400mg 8,400 mg PO DAILY 07/08/24 [History] Grape Seed Extract 315mg 315 mg PO DAILY 07/08/24 [History] Milk Thistle 500mg 1,000 mg PO DAILY 07/08/24 [History] Mv-Min/Folic/Vit K/Lut/Yhfa627 [Alive Women's 50 Plus Tablet] 1 tab PO DAILY 07/08/24 [History] [place] 3-6-9 1 cap PO DAILY 07/08/24 [History] Psyllium Husk [Fiber Capsule] 0.4 gm PO DAILY 07/08/24 [History] Vitamin B-12(Unknown Dose) 1 tab PO DAILY 07/08/24 [History] Vitamin D3 500mcg 500 mcg PO HS 07/08/24 [History] Apixaban [Eliquis Starter Pack (for VTE)] 5 - 10 mg PO DIRECTED 30 Days #1 each 07/11/24 [Rx] Metoprolol Tartrate [Lopressor] 12.5 mg PO BID 30 Days #60 tab 07/11/24 [Rx] Follow up Appointment(s)/Referral(s): Jean Carlos Jacinto MD [STAFF PHYSICIAN] - 1 Week (Patient to make appointment based on schedule) None,Stated [REFERRING] - 1-2 days (Patient to make appointment based on schedule) Venkata Goddard MD [STAFF PHYSICIAN] - 1 Week (Patient to make appointment based on schedule) Patient Instructions/Handouts: Pulmonary Embolism (IP) Discharge Disposition: HOME SELF-CARE
--- NOTE | 2024-07-11 13:31 | P.PN ---
Subjective Progress Note Date: 07/11/24 Principal diagnosis: Pulmonary embolism. This is a 79-year-old female, history of degenerative joint disease, history of atrial fibrillation, history of breast cancer, patient had a recent bunion surgery on the left foot and that was in March of 2024, patient was advised to go to rehab and has been following up in rehab after her surgery. Yesterday while in rehab, patient was complaining of left lower extremity swelling, and she was also complaining of some shortness of breath. Patient was sent to [place] ER, and she was found to have acute pulmonary embolism/bilateral pulmonary emboli. I believe she was also found to have left lower extremity DVT. Patient was complaining of some vague chest discomfort and shortness of breath when she was in the ER. Patient was placed on heparin, CT angiogram of the chest showed no evidence of right ventricular strain, patient was seen by vascular surgery, planning echocardiogram, and depending on the echocardiogram findings the decision will be made whether to continue medical therapy or to proceed with EKOS thrombolysis in the meantime the patient seems to be doing well, resting, does not seem to be in any distress patient is on room air, O2 sat is 96%, hemodynamically stable, multiple family members at bedside Patient was seen today on 07/10/2024, patient is doing well, on room air, does not seem to be in any distress, hence we will go ahead and transition the patient from heparin to Eliquis.Labs today were reviewed she had relatively normal CBC, potassium is low at 3.2, being addressed as per protocol. PTT today 64.8 Progress note dated July 11, 2024. 79-year-old female seen today in room 362. She is on room air, she is not receiving any IV fluids. She was placed on Eliquis. The patient is hoping to be discharged sometime later today. She denies any shortness of breath, chest pain, or any other chest complaints for that matter. She is resting comfortably in bed. She is awake and alert. No new labs today. Labs from yesterday have been reviewed. Objective - Vital Signs Vital signs: Vital Signs Temp 98.1 F 07/11/24 08:29 Pulse 89 07/11/24 08:29 Resp 14 07/11/24 08:29 BP 93/63 11/18/24 08:29 Pulse Ox 96 07/11/24 08:29 FiO2 Intake & Output 07/10/24 07/11/24 07/11/24 18:59 06:59 18:59 Intake Total 688.995 360 Balance 688.995 360 Weight 52.4 kg Intake: Intake, IV Titration 148.995 Amount Heparin Sod,Pork in 0.45% 148.995 NaCl 25,000 unit In 0.45 % NaCl 1 250ml.bag @ 18 UNITS/KG/HR 19.8 mls/hr IV .[id number] REPLACED BY [facility] Rx#: [id number] Oral 540 360 Other: Voiding Method Toilet Toilet # Voids 1 - Exam No acute distress, oriented 3. HEENT examination is grossly unremarkable. Mucous membranes are moist. No oral lesions. Neck supple. Full range of motion. No adenopathy thyromegaly or neck vein distention. Cardiovascular examination reveals regular rhythm rate. S1-S2 normal. No S3 or S4. No discernible murmur noted. Lungs reveal clear breath sounds. Breath sounds are equal bilaterally. No adventitious lung sounds including wheezes rhonchi or crackles. Abdomen soft bowel sounds are heard. No masses or tenderness. Extremities are intact. No cyanosis clubbing or edema. Skin is without rash or lesion. Neurologic examination is brief but nonfocal. - Labs CBC & Chem 7: 07/10/24 06:46 07/10/24 06:46 Assessment and Plan Assessment: Acute bilateral pulmonary embolism. Acute DVT, left lower extremity. New onset atrial fibrillation. Recent bunion surgery on the left foot. Plan: Plan dated July 11, 2024. The patient is seen today in room 362. She is not receiving any supplemental oxygen. The patient is not receiving any IV fluids. The patient's heparin has been discontinued in favor of Eliquis. Labs, x-rays, and all medications are reviewed. The patient is being evaluated for possible discharge. We will continue to follow make recommendations along the way. Prognosis is guarded. Time with Patient: Less than 30
--- NOTE | 2024-07-11 13:52 | P.PN ---
Subjective Progress Note Date: 07/11/24 HISTORY OF PRESENT ILLNESS: Pleasant 79-year-old female patient who does not follow regularly with a car diologist she is somewhat of a poor historian but does verbalize a history of recent bunion surgery about 2 months ago, hypertension and questionable history of atrial fibrillation about a year and a half ago at which time according to her the workup was unremarkable. She believes she saw a bookkeeping machine operator over 24 years ago but not recently. She presented yesterday to her physical therapy appointment and was noted to be very short of breath at which time EMS was called. She says she has been feeling more short of breath over the last 2 to 3 weeks. She was sent to [place] [facility] and found to have bilateral pulmonary emboli with possible RV strain as well as left lower extremity DVT. She was seen by Dr. Fgaan and not felt to be candidate for intervention. Echocardiogram is pending. She was also incidentally found to have atrial fibrillation of unknown duration. At times with RVR. She denies any chest discomfort or lower extremity edema. She denies any orthopnea or PND. She feel s her breathing is stable but has not been up out of bed since admission. She does not feel any palpitations. She has no history of dizziness or lightheadedness and no syncopal episodes. Troponins have been negative x 3. Potassium normal, sodium 129, BUN 23, creatinine 0.65. She was on hydrochl orothiazide 50 mg p.o. daily at home and this has been on hold. Heart rate has been up to into the 120s at times. Blood pressure is on the soft side. 07/10/2024 Patient examined this morning at the bedside. Patient currently denies chest pain or pressure. She denies shortness of breath. Telemetry reveals atrial fibrillation with a heart rate in the 70s. She has been transition to [facility] by pulmonary medicine. Echocardiogram completed revealing ejection fraction 55 to 60%, right ventricular systolic pressure within normal limits, mild to moderate mitral regurgitation, moderate tricuspid regurgitation. 07/11/24 Patient is seen and examined. She denies having any shortness of breath. She feels that she is back to normal. She has not felt any racing heart or palpitations. Her heart rate is currently 7080s in atrial fibrillation. PHYSICAL EXAM: VITAL SIGNS: Reviewed. GENERAL: Well-developed in no acute distress. NECK: Supple. No JVD or thyromegaly LUNGS: Respirations even and unlabored. Lungs essentially clear to auscultation bilaterally. HEART: Irregular rate and rhythm. S1 and S2 heard. Systolic murmur noted EXTREMITIES: Normal range of motion. No clubbing or cyanosis. Peripheral pulses intact. No lower extremity edema ASSESSMENT: #1 atrial fibrillation, unknown duration, likely persistent, some RVR at times #2 bilateral PE and DVT #3 hypertension PLAN: Patient has been transition to [facility] by pulmonary medicine Continue current dose of metoprolol Continue telemetry monitoring Patient is currently stable from a cardiac standpoint No further cardiac workup at this time. Patient is cleared for discharge and may follow-up with Dr. Gaona in the office in 1 to 2 weeks. Cardiology will sign off this case and follow on an as-needed basis. Please rec onsult for any new concerns. Nurse practitioner note has been reviewed by physician. Signing provider agrees with the documented findings, assessment, and plan of care documented by KENNEL MANAGER DOG TRACK as a scribe. Objective - Vital Signs Vital signs: Vital Signs Temp 98.1 F 07/11/24 08:29 Pulse 89 07/11/24 08:29 Resp 14 07/11/24 08:29 BP 93/63 07/11/24 08:29 Pulse Ox 96 07/11/24 08:29 FiO2 Intake & Output 07/10/24 07/11/24 07/11/24 18:59 06:59 18:59 Intake Total 688.995 360 Balance 688.995 360 Weight 52.4 kg Intake: Intake, IV Titration 148.995 Amount Heparin Sod,Pork in 0.45% 148.995 NaCl 25,000 unit In 0.45 % NaCl 1 250ml.bag @ 18 UNITS/KG/HR 19.8 mls/hr IV .[id number] [facility] Rx#: [id number] Oral 540 360 Other: Voiding Method Toilet # Voids 1 - Labs CBC & Chem 7: 07/10/24 06:46 07/10/24 06:46
--- NOTE | 2024-07-12 15:40 | CDI ---
Documentation Clarification Form Date: 07/12/2024 03:24:15 PM From: Cyndy Rios Phone: Admit Date: 07/08/2024 06:03:00 PM Patient Name: Kayley Wright Visit Number: [id number] Discharge Date: 07/11/2024 12:50:00 PM ATTENTION: The Clinical Documentation Specialists (CDI) and [facility] Coding Staff appreciate your assistance in clarifying documentation, Please respond to the clarification below the line at the bottom and electronically sign, The CDI & [facility] Coding staff will review the response and follow-up if needed, Please note: Queries are made part of the Legal Health Record, If you have any questions, please contact the author of this message via ITS, Doctor/Provider: Theodore Evangelista There is documentation of Pulmonary Embolism in DS on 07/11 Additional clarification is requested, History/Risk Factors: History of presentillness; patient 79-year-old lady with past medical history significant forhypertensionwho is [facility]ransferfor [facility] for acuteDVTand PE, Patient apparently was following up at her rehab appointment since [place] Clinical Indicators: on 06/29 H/P note- Patient apparently was following up at her rehab appointment since patient had abunionsurgery a few months ago where she was found to be notdoing well and wasshort of breath, Patient stated that she was having chest painandshortness of breathfor the last few days, Shortness of breath is present at rest as on exertion, Patient was referred to [facility] where patient had aCTPE protocol done that showed patient to have bilateral P E,ultrasoundof lower extremity done showedleft lower extremity DVT On 07/10 pn -Patient examined this morning at the bedside, Patient currentlydenieschest painorpressure, Shedeniesshortness of breath, Telemetryrevealsatrial fibrillationwith a heart rate in the 70s, She has been transition to Eliquis by pulmonary medicine, Echocardiogramcompleted revealing ejection fraction 55 to 60%, right ventricular systolicpressurewithin normal limits, mild to moderatemitral regurgitation, moderate tricuspid regurgitation, ON 07/11 DS- Acutebilateral PE ,Acuteleft lower extremity DVT ,New onsetA-fib Hypertension Recentbunionsurgery on left foot whichmay franklin provoking factor for herDVT andpulmonary embolism Treatment: Patient was started on IV heparin Can you please clarify pulmonary embolism and DVT is complication of surgery? [ ] Yes , Pulmonary embolism and DVT are complication of surgery ? [ ] No , Pulmonary embolism and DVT are not a complication of surgery ? [ ] Other, please specify [ ] Unable to determine (Template Last Revised: October 2020) MTDD
--- NOTE | 2024-07-12 15:45 | CDI ---
Documentation Clarification Form Date: 07/13/2024 03:24:15 PM From: Cyndy Rios Phone: Admit Date: 07/08/2024 06:03:00 PM Patient Name: Kayley Wright Visit Number: [id number] Discharge Date: 07/11/2024 12:50:00 PM ATTENTION: The Clinical Documentation Specialists (CDI) and [facility] Coding Staff appreciate your assistance in clarifying documentation, Please respond to the clarification below the line at the bottom and electronically sign, The CDI & [facility] Coding staff will review the response and follow-up if needed, Please note: Queries are made part of the Legal Health Record, If you have any questions, please contact the author of this message via ITS, Doctor/Provider: Theodore Evangelista There is documentation of Pulmonary Embolism in DS on 07/11 Additional clarification is requested, History/Risk Factors: History of presentillness; patient 79-year-old lady with past medical history significant forhypertensionwho is atransferfor [facility] for acuteDVTand PE, Patient apparently was following up at her rehab appointment since [place] March of 2024 Clinical Indicators: on 06/29 H/P note- Patient apparently was following up at her rehab appointment since patient had abunionsurgery a few months ago where she was found to be notdoing well and wasshort of breath, Patient stated that she was having chest painandshortness of breathfor the last few days, Shortness of breath is present at rest as on exertion, Patient was referred to [facility] where patient had aCTPE protocol done that showed patient to have bilateral P E,ultrasoundof lower extremity done showedleft lower extremity DVT On 07/10 pn -Patient examined this morning at the bedside, Patient currentlydenieschest painorpressure, Shedeniesshortness of breath, Telemetryrevealsatrial fibrillationwith a heart rate in the 70s, She has been transition to Eliquis by pulmonary medicine, Echocardiogramcompleted revealing ejection fraction 55 to 60%, right ventricular systolicpressurewithin normal limits, mild to moderatemitral regurgitation, moderate tricuspid regurgitation, ON 07/11 DS- Acutebilateral PE ,Acuteleft lower extremity DVT ,New onsetA-fib Hypertension Recentbunionsurgery on left foot whichmay franklin provoking factor for herDVT andpulmonary embolism Treatment: Patient was started on IV heparin Can you please clarify pulmonary embolism and DVT is complication of surgery? [ x] Yes , Pulmonary embolism and DVT are complication of surgery ? [ ] No , Pulmonary embolism and DVT are not a complication of surgery ? [ ] Other, please specify [ ] Unable to determine (Template Last Revised: October 2020) MTDD
== END 2024-07-11 12:50 | disposition home or self-care (01) | DRG 300 ==
LOC: EC 17:40 → 3SCARD 18:03
PROVIDERS: ADMIT Hospitalist; ATTEND Hospitalist
DX: T81.718A Complication of other artery following a procedure, not elsewhere classified, initial encounter (principal); I82.402 Acute embolism and thrombosis of unspecified deep veins of left lower extremity; T81.72XA Complication of vein following a procedure, not elsewhere classified, initial encounter; I26.99 Other pulmonary embolism without acute cor pulmonale; I48.91 Unspecified atrial fibrillation; I10 Essential (primary) hypertension; I08.1 Rheumatic disorders of both mitral and tricuspid valves; Z88.0 Allergy status to penicillin
CPT/HCPCS: 36415; 80053; 80061; 84484; 85025; 85610; 85730; 93005; 93306; 96365; 96366; 99291